=== PATIENT | female | born 1960 | race Caucasian/White ===

== ENCOUNTER → 2016-12-11 | Outpatient (CLI) | payer BC ==
[~2016-12-11] MED LIST: IBUP-103 PO; METO50TA16 PO; ONDA4TAB7 SL
--- NOTE | 2016-12-11 14:44 | DIAGNOSTIC IMAGING REPORT ---
LEFT CLAVICULAR ULTRASOUND CLINICAL HISTORY: Palpable lump. COMPARISON STUDY: No previous studies for comparison. TECHNIQUE: Sonography of the left clavicular region was performed at site of palpable abnormality. FINDINGS: Note is made of a 1 x 0.6 x 0.5 cm hypoechoic nodule immediately superior to the left clavicle. This reflects the palpable abnormality. Significant vascularity of this nodule is noted with color flow. IMPRESSION: 1 cm hypoechoic hypervascular left supraclavicular nodule which reflects the palpable abnormality. This lesion is indeterminate and may reflect an enlarged lymph node. Ultrasound-guided fine needle aspiration is recommended. Electronically signed by: Jacques Velasquez M.D. 12/11/2016 2:43 PM Dictated Date/Time: 12/11/2016 2:31 PM
== END | disposition home or self-care (01) ==
LOC: C.ULTR 14:01
PROVIDERS: ATTEND Family Medicine
DX: R22.2 Localized swelling, mass and lump, trunk (principal)

== ENCOUNTER → 2016-12-18 | Outpatient (CLI) | payer BC ==
--- NOTE | 2016-12-21 13:34 | MAMMOGRAPHY REPORT ---
BILATERAL DIGITAL SCREENING MAMMOGRAM TOMOSYNTHESIS WITH CAD: 12/18/2016 CLINICAL HISTORY: Routine screening. Patient has no complaints. TECHNIQUE: Breast tomosynthesis in addition to standard 2D mammography was performed. Current study was also evaluated with a Computer Aided Detection (CAD) system. COMPARISON: Comparison is made to exams dated: 07/05/2014 mammogram and 12/31/2010 mammogram - [facility]. BREAST COMPOSITION: There are scattered areas of fibroglandular density in both breasts. FINDINGS: There is a nodular 9 mm asymmetry seen in the left superior posterior breast on the MLO vi ew only, which may represent normal overlapping fibroglandular tissue although spot compression tomos ynthesis views and possible breast ultrasound are recommended for further evaluation. The remainder of both breasts are stable compared to prior exams, without suspicious masses, calcific ations, or areas of architectural distortion noted. IMPRESSION: ACR BI-RADS CATEGORY 0: INCOMPLETE EVALUATION: NEED ADDITIONAL IMAGING EVALUATION Left breast asymmetry, for which additional imaging evaluation is recommended. The patient will be c alled to schedule an appointment. Approximately 10% of breast cancers are not detected with mammography. A negative mammographic report should not delay biopsy if a clinically suggestive mass is present. Leonor Chacko M.D. ah/:12/18/2016 16:46:30 Hot Plate Press Operator: Francoise VÁZQUEZ(Jameson)(M), [facility] letter sent: Addl Imaging 0 BI-RADS Code: ACR BI-RADS Category 0: Incomplete Evaluation: Need Additional Imaging Evaluation
== END | disposition home or self-care (01) ==
LOC: C.MAMM 14:47
PROVIDERS: ATTEND Family Medicine
DX: Z12.31 Encounter for screening mammogram for malignant neoplasm of breast (principal); N64.89 Other specified disorders of breast